=== PATIENT | female | born 1955 | race Caucasian/White ===

== ENCOUNTER 2022-04-22 20:41 | Emergency (ER) | payer MEDICARE, SELFPAY ==
[2022-04-22 20:45] VITALS: BP 122/78; PULSE 67; RESP 16; TEMP 37.2; O2SAT 97; BMI 28.5
--- NOTE | 2022-04-22 21:18 | ED.GENADULT ---
HPI - General Adult General Chief complaint: Unspecified Complaint, Adult Stated complaint: high potassium 6.9 Time Seen by Provider: 04/22/22 20:46 History of Present Illness HPI narrative: This 66-year-old female was told to come into the emergency department after having lab results returned from a preop physical. She is scheduled to have a D&C next week. Her potassium returned at 6.9. The patient states that she feels fine and has no complaints. She reports that she does take lisinopril and hydrochlorothiazide to manage blood pressure. The current on verified medication list in the record here shows lisinopril and metoprolol but no hydrochlorothiazide. Instead she is taking chlorthalidone which should sufficiently counter act the potassium-sparing affects lisinopril. Related Data Home Medications Medication Instructions Recorded Confirmed bupropion HCl 150 mg tablet,12 hr 150 mg PO DAILY 04/15/22 04/22/22 sustained-release calcium carbonate 600 mg calcium 1,500 mg PO DAILY 04/15/22 04/22/22 (1,500 mg) tablet chlorthalidone 25 mg tablet 25 mg PO DAILY 04/15/22 04/22/22 cholecalciferol (vitamin D3) 50 2,000 unit PO DAILY tab 04/15/22 04/22/22 mcg (2,000 unit) tablet levothyroxine 125 mcg capsule 125 mcg PO QDAY 04/15/22 04/22/22 lisinopril 20 mg tablet 20 mg PO DAILY 04/15/22 04/22/22 metoprolol succinate 25 mg 12.5 mg PO 04/15/22 04/15/22 tablet,extended release 24 hr omega-3 fatty acids 500 mg capsule 1,000 mg PO QDAY 04/15/22 04/22/22 carbidopa 25 mg-levodopa 100 mg tab 04/22/22 tablet fluoxetine 40 mg capsule mg 04/22/22 hydroxyzine HCl 25 mg tablet mg 04/22/22 Allergies Allergy/AdvReac Type Severity Reaction Status Date / Time No Known Allergies Allergy Unverified 04/22/22 20:48 Review of Systems Status of ROS: Reports: 10 or more systems reviewed and unremarkable except as noted in History and below Narrative: Constitutional: No fevers, no weight gain or loss. Eyes: No discharge. No vision changes. HENT: No congestion, no sore throat, no ear pain. Cardiovascular: No chest pain, no palpitations. Respiratory: No shortness of breath, no wheezes, no cough. Gastrointestinal: No abdominal pain, no vomiting, no diarrhea. Genitourinary: No dysuria, no hematuria. Musculoskeletal: Normal range of motion. Skin: No rashes, no pruritis. Neurological: No dizziness, weakness, sensory change, speech change. Endo/Heme/Allergies: No bruising or bleeding. No polydipsia. Pysch: no suicidality, no anxiety, no insomnia. All other systems reviewed and are negative. [facility] Medical History (Updated 04/22/22 @ 22:17 by Demetrius Stewart MD) Breast cancer Depression Hypertension Hypothyroid Migraines Osteoarthritis, hand Parkinson's disease Surgical History (Updated 04/17/22 @ 12:55 by Angie Martinez MD) H/O mastectomy (2015) History of cataract surgery (01/2018) Hx of breast augmentation (07/2016) [place] teeth extracted Family History (Updated 04/17/22 @ 12:51 by Angie Martinez MD) Father Coronary artery disease Sister Breast cancer High blood pressure Alzheimer disease Social History (Updated 04/17/22 @ 12:53 by Angie Martinez MD) Narrative: Retired Smoking Status: Former smoker What tobacco products do you use: cigarettes Smoking quit date/years: >15 years ago How often do you have a drink containing alcohol: 2-4 times a month AUDIT-C Alcohol total score: 2 Non-prescribed substance use: denies use Are you now , , , , never or living with a partner: Social isolation score (0-1 are the most socially isolated patients): 1 Exam Narrative: Exam Narrative: Constitutional: Well-developed, well-nourished, no acute distress. HEENT: Normocephalic, atraumatic. Neck: Normal range of motion. Nontender. Supple. Heart: Regular. No murmurs. Normal rate. Intact distal pulses. Lungs: Clear to auscultation. No chest discomfort. No wheezes, rhonchi, or rales. Abdomen: Normal bowel sounds. Nontender. No rebound tenderness. Genitalia: Deferred. Back: No midline tenderness. Normal range of motion. Extremities: Normal range of motion. No injury. Skin: Intact. No rash. Warm. No erythema or pallor. Neurologic: No altered sensation. No weakness. Alert and oriented. Psychiatric: No suicidality. No anxiety or depression. No insomnia. Nursing notes and vitals signs are reviewed. Const: Vital Signs, click to edit/add: Vital Signs - 24 hr 04/22/22 20:45 Temperature 99.0 F Pulse Rate [Right Pulse Oximeter] 67 Respiratory Rate 16 Blood Pressure [Le ft Upper Arm] 122/78 Pulse Oximetry 97 Course Vital Signs Vital signs: Initial Vital Signs Temperature 99.0 F 04/22/22 20:45 Temperature Source Temporal Artery Scan 04/22/22 20:45 Pulse Rate 67 04/22/22 20:45 Respiratory Rate 16 04/22/22 20:45 Blood Pressure 122/78 04/22/22 20:45 Blood Pressure Mean 92 04/22/22 20:45 Blood Pressure Position Sitting 04/22/22 20:45 Pulse Oximetry 97 04/22/22 20:45 Oxygen Delivery Method 04/22/22 20:45 Vital Signs Temperature 99.0 F 04/22/22 20:45 Pulse Rate 67 04/22/22 20:45 Respiratory Rate 16 04/22/22 20:45 Blood Pressure 122/78 04/22/22 20:45 Pulse Oximetry 97 04/22/22 20:45 Temperature 99.0 F 04/22/22 20:45 Pulse Rate 67 04/22/22 20:45 Respiratory Rate 16 04/22/22 20:45 Blood Pressure 122/78 04/22/22 20:45 Pulse Oximetry 97 04/22/22 20:45 Medical Decision Making MDM Narrative Medical decision making narrative: This patient had labs drawn earlier today for a preop physical. The potassium returned at 6.9. This is rather suspicious for a hemolyzed sample. The patient is not describing any symptoms. EKG shows normal findings without any peaked T-waves. An IV was established and labs were drawn again which showed normal findings including a potassium at 4.1. The patient is okay to return home and continue current plans. Lab Data Labs: Lab Results 04/22/22 04/22/22 Range/Units 21:28 21:28 WBC 7.10 (4.50-11.00) K/uL RBC 4.47 (4.00-5.20) m/uL Hgb 12.9 (12.0-16.0) gm/dL Hct 38.6 (33.0-51.0) % MCV 86 (80-100) fL MCH 29 (26-34) pg MCHC 33 (32-36) gm/dL RDW Coeff of Nathalia 13.1 (11.5-15.5) % Plt Count 256 (140-440) K/uL Neut % (Auto) 62.1 (42.0-72.0) % Lymph % (Auto) 23.1 (20-44) % [place] % (Auto) 9.0 (0.0-11.0) % Eos % (Auto) 5.1 (0.0-7.0) % Baso % (Auto) 0.4 (0.0-3.0) % Neut # (Auto) 4.41 (1.7-7.0) K/uL Lymph # (Auto) 1.64 (0.90-2.90) K/uL [place] # (Auto) 0.60 (0.00-0.90) K/UL Eos # (Auto) 0.36 (0.00-0.50) K/uL Baso # (Auto) 0.03 (0.00-0.30) K/uL Abs Immat Gran (auto) 0.02 (0.00-0.30) K/uL Sodium 137 (135-149) mmol/L Potassium 4.1 (3.6-5.1) mmol/L Chloride 102 (96-114) mmol/L Carbon Dioxide 30 (20-32) mmol/L BUN 31 H (7-30) mg/dL Creatinine 1.6 H (0.5-1.5) mg/dL Estimated Creat Clear 29.06 Estimated GFR 35 ml/min Glucose 96 (60-115) mg/dL Calcium 9.1 (8.4-10.6) mg/dL ECG Data Interpretation: Normal sinus rhythm. Rate 61 beats per minute. There are no ST or T-wave abnormalities. Discharge Plan Discharge Clinical Impression: Abnormal laboratory test result Patient Disposition: Home, Self-Care Condition: Stable Additional Instructions: Continue current plans. Follow up with MD as scheduled. Return to emergency department as needed. Prescriptions: No Action cholecalciferol (vitamin D3) 50 mcg (2,000 unit) tablet 2,000 unit PO DAILY 0RF bupropion HCl 150 mg tablet sustained-release 12 hr 150 mg PO DAILY 0RF Rx Instructions: 450mg daily omega-3 fatty acids 500 mg capsule 1,000 mg PO QDAY 0RF chlorthalidone 25 mg tablet 25 mg PO DAILY 0RF Rx Instructions: takes half lisinopril 20 mg tablet 20 mg PO DAILY 0RF calcium carbonate 600 mg calcium (1,500 mg) tablet 1,500 mg PO DAILY 0RF levothyroxine 125 mcg capsule 125 mcg PO QDAY 0RF metoprolol succinate 25 mg tablet extended release 24 hr 12.5 mg PO 0RF fluoxetine 40 mg capsule 0RF Label Comments: TAKE ONE CAPSULE BY MOUTH EVERY MORNING hydroxyzine HCl 25 mg tablet 0RF Label Comments: TAKE 1-2 TABLETS (25-50 MG) BY MOUTH DAILY IF NEEDED FOR SEVERE ANXIETY. LIMITED USE RECOMMENDED TO AVOID WORSENING MEMORY PROBLEMS carbidopa-levodopa 25-100 mg tablet 0RF Label Comments: TAKE TWO TABLETS BY MOUTH FOUR TIMES A DAY Follow Up/Referrals: Sunny Kraus MD [Staff Physician] - Stand Alone Forms: Advanced Telemetry Info Instructions
[2022-04-22 21:34] LABS: Basophils Absolute Auto 0.03 K/uL (0.00-0.30); Basophils Percent Auto 0.4 % (0.0-3.0); Eosinophils Absolute Auto 0.36 K/uL (0.00-0.50); Eosinophils Percent Auto 5.1 % (0.0-7.0); Hematocrit 38.6 % (33.0-51.0); Hemoglobin* 12.9 gm/dL (12.0-16.0); Immature Granulocytes Abs Auto 0.02 K/uL (0.00-0.30); Lymphocytes Absolute Auto 1.64 K/uL (0.90-2.90); Lymphocytes Percent Auto 23.1 % (20-44); Mean Corpuscular HGB Conc 33 gm/dL (32-36); Mean Corpuscular Hemoglobin 29 pg (26-34); Mean Corpuscular Volume 86 fL (80-100); Neutrophils Absolute Auto 4.41 K/uL (1.7-7.0); Neutrophils Percent Auto 62.1 % (42.0-72.0); Platelet Count* 256 K/uL (140-440); RDW Coefficient of Variation % 13.1 % (11.5-15.5); Red Blood Count 4.47 m/uL (4.00-5.20)
[2022-04-22 21:36] LABS: Slide Review Reflex No
[2022-04-22 21:45] LABS: Chloride* 102 mmol/L (96-114); Potassium* 4.1 mmol/L (3.6-5.1); Sodium* 137 mmol/L (135-149)
[2022-04-22 21:48] LABS: Carbon Dioxide* 30 mmol/L (20-32); Creatinine* 1.6 mg/dL (0.5-1.5); Est. Creatinine Clearance* 29.06; Estimated Glomerular Filt Rate 35 ml/min
[2022-04-22 21:49] LABS: Blood Urea Nitrogen* 31 mg/dL (7-30); Calcium* 9.1 mg/dL (8.4-10.6); Glucose* 96 mg/dL (60-115)
== END 2022-04-22 22:33 | disposition home or self-care (01) ==
PROVIDERS: Emergency Provider Emergency Medicine Emergency Medical Services
DX: R79.9 Abnormal finding of blood chemistry, unspecified (principal)
CPT/HCPCS: 36415; 80048; 85025; 93005; 99283; 99284

== ENCOUNTER 2022-04-27 06:54 | Day surgery (SDC) | payer MEDICARE, SELFPAY ==
[2022-04-27] MEDS: LACTATED RINGERS 1000 ML 1,000 ML 100 ML IV (07:00)
[2022-04-27 07:08] VITALS: BP 119/83; PULSE 56; RESP 16; TEMP 36.7; O2SAT 95
[2022-04-27 07:10] VITALS: BMI 30.2
[2022-04-27] MEDS: SODIUM CHLORIDE 0.9 % (FLUSH) 10 ML SYRINGE IVF (07:28)
[2022-04-27] MEDS: BUPIVACAINE 0.25% 30 ML INJECTION (08:40)
[2022-04-27] MEDS: LIDOCAINE 1% 20 ML VIAL INJECTION (08:40)
--- NOTE | 2022-04-27 09:01 | P.GYNPRC_ITS ---
Procedure Note Date Seen: 04/27/22 Procedure Details: PREOPERATIVE DIAGNOSIS: 1. Postmenopausal bleeding 2. Endometrial polyp fragments on endometrial biopsy POSTOPERATIVE DIAGNOSIS: 1. Postmenopausal bleeding 2. Endometrial polyp fragments on endometrial biopsy NAME OF PROCEDURE: 1. Hysteroscopy. 2. D and C 3. Polypectomy. SURGEON: Juan. ANESTHESIA: Monitored anesthesia care and paracervical block. COMPLICATIONS: None.. ESTIMATED BLOOD LOSS: Less than 10 mL. FINDINGS: Endometrial polypoid tissue along the posterior aspect of the endometrial cavity, posteriorly near left tubal ostia and near the right tubal ostia superiorly. PATHOLOGY SPECIMENS: 1. Endometrial polyps. 2. Endometrial curettings. PROCEDURE: After obtaining informed consent, the patient was taken to the operating room where she received monitored anesthesia care. She was prepared and draped in the normal sterile fashion, in the dorsal lithotomy position. A Gallito open-sided bivalve speculum was introduced into the vagina and the cervix visualized. The anterior lip of the cervix was grasped with a single- tooth tenaculum for traction. A paracervical block was then administered using a total of 20 mL of a 50/50 mixture of 0.25% Marcaine and 1% lidocaine plain. The uterus was gently sounded. Sound length was 7 cm. The cervix was gently dilated to a # 6 Hegar dilator. A hysteroscope was then advanced under direct visualization through the cervix into the uterine cavity. Sterile normal saline was used as distending medium. The uterine cavity was carefully inspected with the findings noted above. Pictures were taken for documentation purposes. The TruClear morcellator was inserted through the operating channel in the hysteroscope. The morcellator was used to remove the polypoid tissue in its entirety. The hysteroscope was then removed. The endometrial lining was then sharply curetted. The hysteroscope was removed. The tenaculum was removed. There was little bleeding from the tenaculum site, which was controlled with direct pressure sponge stick. All instruments were then removed. The patient tolerated the procedure well. Sponge, lap, needle, and instrument counts reported as correct x2. The patient was taken to the recovery room awake in a stable condition.
[2022-04-27 09:04] VITALS: BP 113/66; PULSE 59; RESP 16; TEMP 36.6; O2SAT 96
--- NOTE | 2022-04-27 09:08 | W.ANESCHARGE ---
Anesthesia Charges Start Date/Time Anesthesia Start Date: 04/27/22 Anesthesia Start Time: 08:17 Stop Date/Time Anesthesia Stop Date: 04/27/22 Anesthesia Stop Time: 09:05 Summary Emergency: No
--- NOTE | 2022-04-27 09:10 | PC.NURSE ---
NACL IRRIGATION DURING HYSTEROSCOPY 800CC. FLUID DEFICIT 135CC
[2022-04-27 09:15] VITALS: BP 111/68; PULSE 59; RESP 16; O2SAT 96
--- NOTE | 2022-04-27 09:16 | W.ANESCHARGE ---
Anesthesia Charges Start Date/Time Anesthesia Start Date: 04/27/22 Anesthesia Start Time: 08:17 Stop Date/Time Anesthesia Stop Date: 04/27/22 Anesthesia Stop Time: 09:05 Summary Emergency: No
[2022-04-27 09:30] VITALS: BP 118/72; PULSE 59; RESP 16; O2SAT 96
== END 2022-04-27 10:19 | disposition home or self-care (01) ==
PROVIDERS: Visit Provider Obstetrics & Gynecology
PROC: 0UDB8ZZ Extraction of Endometrium, Via Natural or Artificial Opening Endoscopic (ICD-10-PCS; CPT 58558; principal; 2022-04-27 08:00)
DX: N95.0 Postmenopausal bleeding (principal); N84.0 Polyp of corpus uteri
CPT/HCPCS: 58558; 00952; 88305; J1100; J1885; J2250; J2405; J2704; J3010; J3490; J7120